=== PATIENT | female | born 1955 | race Caucasian/White ===

== ENCOUNTER 2024-08-15 21:51 | Emergency (ER) | payer OTHER, MEDICARE ==
--- OUTSIDE RECORDS SUMMARY | 2024-08-15 21:54 | XMS REPORT | Continuity of Care Document ---
Author Name Unknown Address [address] [facility] [address] [place] [address] [facility] th[facility] Address [address] [facility] [address] [place] [address] Care Team Providers Care Track Welder Name Role Phone Darren PASCAL, Gabriella Primary Care Physician [phone] Rikki Wade MD Attending Clinician [phone] LANI WAGNER Attending Clinician Unavailab LANI Salas Attending Clinician Unavailab Lani Salas DO Attending Clinician [phone] Rikki Wade MD Admitting Clinician [phone] LANI WAGNER Admitting Clinician Unavailab rena Payers Payer Name Policy Type Policy Number Effective Date Expirati on Date Source Allergies, Adverse Reactions, Alerts Allergy Name Allergy Type Status Severity Reaction(s) Onset Date Inactive Date Treating Clinician Comments Source PENICILL IN DRUG INGREDI Active Hives 2023-06 00:00: 00 [facility] Penicill in Propensi ty to adverse reaction s Active Hives 2023-06 00:00: 00 [facility] CODEINE DRUG INGREDI Active ITCHING 2012-06 00:00: 00 [facility] Codeine Propensi ty to adverse reaction s Active Itching 2012-06 00:00: 00 [facility] Social History Social Habit Start Date Stop Date Quantity Comments Source [facility] Tobacco use and exposure 2024-06-29 00:00:00 2024-06-29 00:00:00 Smokeless tobacco non-user [facility] History of Social function 2024-06-29 00:00:00 2024-06-29 00:00:00 [facility] Sex assigned at 1955 00:00:00 1955 00:00:00 [facility] Smoking Status Start Date Stop Date Source Tobacco smoking consumption unknown [facility] Never smoked tobacco [facility] Medications Ordered Medication Name Filled Medication Name Start Date Stop Date Current Medication? Ordering Clinician Indication Dosage Frequency Signature (SIG) Comments Components Source neomycin-po lymyxin-dex amethasone (MAXITROL) 3.5 mg/g-10,000 unit/g-0.1 % ophthalmic ointment 07-14 16:38: 00 07-14 16:43 :05 No PRN, Starting on Fri07/14/24 at 1038, Until Fri07/14/24 at 1043, Routine, Intra-op [facility] sodium chloride (NS) injection 07-14 16:37: 00 07-14 16:43 :05 No PRN, Starting on Fri07/14/24 at 1037, Until Fri07/14/24 at 1043, Routine, Intra-op [facility] dexamethaso ne (DECADRON PHOSPHATE) 4 mg/mL injection 07-14 16:37: 00 07-14 16:43 :05 No PRN, Starting on Fri07/14/24 at 1037, Until Fri07/14/24 at 1043, Routine, Intra-op [facility] ceFAZolin (ANCEF) injection 07-14 16:37: 00 07-14 16:43 :05 No PRN, Starting on Fri07/14/24 at 1037, Until Fri07/14/24 at 1043, JAYME, Intra-op [facility] carbachoL (MIOSTAT) 0.01 % intraocular injection 07-14 16:35: 00 07-14 16:43 :05 No PRN, Starting on Fri07/14/24 at 1035, Until Fri07/14/24 at 1043, Routine, Intra-op [facility] EPINEPHrine 1:1,000 (1 mg/mL) (ADRENALIN) 0.5 mL in balanced salt soln no.1 irrig. (BSS PLUS) 500 mL OR irrigation 07-14 16:22: 00 07-14 16:43 :05 No PRN, Starting on Fri07/14/24 at 1022, Intra-op [facility] chondroitin sulf-sod hyaluronate (DUOVISC VISCO ELASTIC) intraocular injection 07-14 16:22: 00 07-14 16:43 :05 No PRN, Starting on Fri07/14/24 at 1022, Until Fri07/14/24 at 1043, Routine, Intra-op [facility] water for irrigation irrigation solution 07-14 16:19: 00 07-14 16:43 :05 No PRN, Starting on Fri07/14/24 at 1019, Until Fri07/14/24 at 1043, Routine, Intra-op [facility] Hyaluronida se, Human Recomb. (HYLENEX) injection 07-14 16:14: 00 07-14 16:43 :05 No PRN, Starting on Fri07/14/24 at 1014, Until Fri07/14/24 at 1043, Routine, Intra-op [facility] eye block syringe 11 mL 07-14 16:14: 00 07-14 16:43 :05 No PRN, Starting on Fri07/14/24 at 1014, Until Fri07/14/24 at 1043, Intra-op [facility] cyclopent 1%-tropic 1%-phenyl 2.5%-ketor 0.5% (MYDRIATIC #5) ophthalmic solution syringe 0.5 mL 07-14 15:15: 00 07-14 15:13 :00 No .5mL 0.5 mL, Right Eye, ONCE, 1 dose, On Fri07/14/24 at 0915, Routine, DSU Pre-op [facility] aspirin 81 mg EC tablet 07-14 13:28: 33 Yes 81mg Take 1 tablet by mouth in the morning. [facility] Cholecalcif ramirez, Vitamin D3, 125 mcg (5,000 unit) tablet 07-14 13:28: 33 Yes 5000U Take 1 tablet by mouth in the morning. [facility] Vitamin B-12 500 mcg tablet 07-14 13:28: 33 Yes 500ug Take 1 tablet by mouth in the morning. [facility] Glucosamine -Chondroit- Vit C-Mn 500-400 mg Cap 07-14 13:28: 33 Yes 1{capsu le} Take 1 capsule by mouth in the morning. [facility] Lactobacill us acidophilus 10 billion cell capsule 07-14 13:28: 33 Yes 1{capsu le} Take 1 capsule by mouth in the morning. [facility] HYDROcodone -acetaminop hen (NORCO 5) tablet 1 tablet 2023-06 2- 00:00: 00 06-23 23:57 :00 No 1{tbl} 1 tablet, Oral, ONCE, 1 dose, On Fri06/23/24 at 1800, JAYME [facility] simvastatin 40 mg tablet 2023-06 00:00: 00 Yes 40mg Take 1 tablet by mouth every evening. [facility] estradioL 0.5 mg tablet 02-19 00:00: 00 Yes .5mg Take 1 tablet by mouth in the morning. [facility] triamcinolo ne acetonide 0.1 % cream 07-11 00:00: 00 Yes Apply to area(s) as needed. [facility] Vital Signs Vital Name Observation Time Observation Value Comments S kojo Systolic blood pressure 2024-07-14 16:55:00 130 mm[Hg] [facility] Diastolic blood pressure 2024-07-14 16:55:00 77 mm[Hg] [facility] Heart rate 2024-07-14 16:55:00 65 /min [facility] Respiratory rate 2024-07-14 16:55:00 17 /min [facility] Oxygen saturation in Arterial blood by Pulse oximetry 2024-07-14 16:55:00 99 /min [facility] Body temperature 2024-07-14 16:43:00 36.61 [place] [facility] Body height 2024-07-14 15:10:00 160 cm [facility] Body weight 2024-07-14 15:10:00 56.7 kg [facility] BMI 2024-07-14 15:10:00 22.14 kg/m2 [facility] Systolic blood pressure 2024-07-14 15:10:00 153 mm[Hg] [facility] Diastolic blood pressure 2024-07-14 15:10:00 77 mm[Hg] [facility] Heart rate 2024-07-14 15:10:00 83 /min [facility] Body temperature 2024-07-14 15:10:00 36.39 [place] [facility] Respiratory rate 2024-07-14 15:10:00 14 /min [facility] Body height 2024-07-14 15:10:00 160 cm [facility] Body weight 2024-07-14 15:10:00 56.7 kg [facility] BMI 2024-07-14 15:10:00 22.14 kg/m2 [facility] Oxygen saturation in Arterial blood by Pulse oximetry 2024-07-14 15:10:00 97 /min [facility] Systolic blood pressure 2024-06-23 22:21:00 149 mm[Hg] [facility] Diastolic blood pressure 2024-06-23 22:21:00 74 mm[Hg] [facility] Heart rate 2024-06-23 22:21:00 77 /min [facility] Body temperature 2024-06-23 22:21:00 36.5 [place] [facility] Respiratory rate 2024-06-23 22:21:00 14 /min [facility] Body height 2024-06-23 22:21:00 160 cm [facility] Body weight 2024-06-23 22:21:00 56.7 kg [facility] BMI 2024-06-23 22:21:00 22.14 kg/m2 [facility] Oxygen saturation in Arterial blood by Pulse oximetry 2024-06-23 22:21:00 99 /min [place] [facility] Procedures Procedure Date / Time Performed Performing [facility] Source [id number] - [place] XCAPSL CTRC RMVL INSJ IO LENS PROSTH W/O ECP 2024-07-14 16:05:00 Rikki Wade [facility] XR HAND 3+ VW RIGHT 2024-06-23 22:40:15 Tammy Wagner ra [facility] Encounters Start Date/Time End Date/Time Encounter Type Admission Type Attending Clinicians Care Facility Care Department Encounter ID Source 2024-07-14 09:01:00 2024-07-14 11:07:00 Hospital Encounter Rikki Wade [facility] [id number] [facility] 2024-07-14 10:02:00 2024-07-14 10:35:00 Surgery Rikki Wade [facility] [id number] [facility] 2024-06-23 16:22:00 2024-06-23 18:05:00 Emergency X LANI WAGNER SANDRA [facility] ERT [id number] [facility] 2024-06-23 16:22:00 2024-06-23 18:05:00 Emergency Lani Wagner [facility] [id number] [facility] Results Test Description Test Time Test Comments Results Resul t Comments Source XR Hand 3+ vw right 2024-05-31 5 23:20:43 ORDERING PHYSICIAN: LANI WAGNER HISTORY: right hand pain TECHNIQUE: Right hand radiographs, 3 views. COMPARISON: None. FINDINGS:Bones and joints: Small finger proximal phalanx displaced, angulatedfracture. Interphalangeal and thumb CMC joint degenerative changes. Soft tissues: Within normal limits. [facility] History and Physical Notes Date/Time Note Provider Source 2024-07-14 09:30:00 H&P Update H&P was reviewed and the patient was examined and there was no change in the patient's condition. [facility] Health Notes Date/Time Note Provider Source 2024-06-29 17:48:39 Images from the original note were not included. Your procedure is at [facility] on 07/14/23. The address is [address] [place] [address], [id number] [facility] nursing staff will call you the workday before your procedure to let you know what time to arrive.On the day of your procedure, please go inside that door and check in at the desk. Please note: You may not travel home alone and that includes in a taxi or by bus. We must speak to your Responsible Adult (who will be picking you up) the morning of your procedure, before the start of your procedure. This person must be an adult over the age of 18 years of age. Do not eat any solid food after midnight the night before surgery. May have 8-16 oz of water/clear liquids each hour after midnight, as desired, until two hours prior to arrival to promote hydration. You may take your medications with a sip of water as directed by physician. Anticoagulants will be per physician guidance. Medication Note(s)/Instructions:Will continue ASA per MD instruction. Pending screening, we may test for COVID. If a patient tests positive, their cases are cancelled and/or rescheduled. COVID SCREENING NOTE: Denies COVID symptoms, no testing required. Advised patient will receive a call workday prior to surgery/procedure between 12-3 pm with arrival time. Additional requests, questions, concerns:CB number and availability provided. Patient verbalized understanding of pre-op instructions and voiced no further questions at this time. [facility] 2024-06-23 18:02:32 Pt given printed and verbal discharge instructions regarding closed displaced fracture proximal phalanx. Pt verbalized understanding of instructions, pt awake alert oriented, resp reg unlabored, skin w/d, color appropriate for race, moves all ext well,pt encouraged to follow up with ortho. Advised to seek medical attention for new/prolonged/worsening of symptoms. No adverse reaction to meds given in ER noted upon discharge Awake, alert oriented, resp reg unlabored, skin w/d, pt leaving amb with steady gait, in no apparent distress, [facility] Sayra Hernandez RN [facility] 2024-06-23 16:19:29 Selin Cooper is a 68 year old female c/o hit right fifth finger when tried to fall, no LOC, did not hit head, noted edema [facility] 2024-06-23 16:13:[address] [facility] Emergency Department Note Patient Name: Selin Cooper Date of : 1955 68 year old female Treatment Room: [facility] ED [facility] Primary Care Physician: No primary care provider on file. Patient Escorted by: Family [5] Mode of Arrival: Personal means [1] EMS Treatment Prior to ED Arrival: Travel and Exposure Screening: Symptoms Does patient have any of these symptoms?: (not recorded) Exposure Screening Has patient had contact with someone with a communicable disease in the last month?: (not recorded) Diseases exposed to:: (not recorded) Is Patient ?: (not recorded) Exposure Date: (not recorded) Chief Complaint: Chief Complaint Patient presents with Hand Pain right History of Present Illness: The patient presents from home for evaluation for pain to her right fifth digit that occurred just prior to arrival. She was going for a walk and was checking her mail when she tripped and caught herself with her right hand. She did not hit her head. No loss of conscious. She was ambulatory at the scene. She is not take any blood thinners. She is right-handed. No medication for pain taken prior to arrival. She denies any headache or neck pain. Here for evaluation. Past Medical History/Immunizations: History reviewed. No pertinent past medical history. Allergies: Allergies Allergen Reactions Penicillin Hives Past Social History: Substance & Sexual Activity No substance use or sexual activity history on file. Past Surgical History: History reviewed. No pertinent surgical history. Review of Systems: Review of Systems Constitutional: Negative for chills and fever. Respiratory: Negative for cough. Cardiovascular: Negative for chest pain. Gastrointestinal: Negative for abdominal pain. Genitourinary: Negative for dysuria. Musculoskeletal: Positive for arthralgias. Negative for neck pain and neck stiffness. Skin: Negative for wound. Neurological: Negative for dizziness. Psychiatric/Behavioral: Negative for agitation. Endocrine: Negative for goiter. Physical Exam: ED Triage Vitals [06/23/24 1621] Weight 56.7 kg (125 lb) Actual or estimated Estimated by patient/family report Height 1.6 m (5' 3") BP (!) 149/74 Pulse 77 Resp 14 Temp 36.5 ?C (97.7 ?F) Temp src SpO2 99 % Measured on Room air Physical Exam Vitals and nursing note reviewed. Constitutional: Appearance: Normal appearance. HENT: Head: Normocephalic and atraumatic. Neck: Comments: No vertebral body tenderness to her cervical spine. Cardiovascular: Rate and Rhythm: Normal rate. Pulses: Normal pulses. Pulmonary: Effort: Pulmonary effort is normal. No respiratory distress. Abdominal: General: There is no distension. Musculoskeletal: Cervical back: Neck supple. No tenderness. Comments: No vertebral body tenderness to the thoracic or lumbar spine. She has tenderness, swelling and a slight deformity noted to the fifth digit of her right hand. +2 radial pulse right side. Skin: General: Skin is warm. Neurological: Mental Status: She is alert. Radiology: XR Hand 3+ vw right Final Result ORDERING PHYSICIAN: LANI WAGNER HISTORY: right hand pain TECHNIQUE: Right hand radiographs, 3 views. COMPARISON: None. FINDINGS: Bones and joints: Small finger proximal phalanx displaced, angulated fracture. Interphalangeal and thumb CMC joint degenerative changes. Soft tissues: Within normal limits. IMPRESSION Right small finger proximal phalanx fracture. RL: 5500 End of Report Lab Results: Lab Results - No data to display EKG: If EKG completed, see Procedure Note. Orders and Treatments: Orders Placed This Encounter Procedures XR Hand 3+ vw right Orders Placed This Encounter Medications HYDROcodone-acetaminophen (NORCO 5) tablet 1 tablet First Provider Eval: ED Events Date/Time Event User Comments 06/23/241623 First Provider Evaluation LANI WAGNER DO -- 06/23/241623 Medical Screening Begins LANI WAGNER DO -- ED COURSE Diagnosis/Impression as of 06/23/241755 Pain of right hand Closed displaced fracture of proximal phalanx of right little finger, initial encounter Procedures: Procedures MDM: Medical Decision Making The patient presents from home for evaluation for pain to her right fifth digit that occurred just prior to arrival. She was going for a walk and was checking her mail when she tripped and caught herself with her right hand. She did not hit her head. No loss of conscious. She was ambulatory at the scene. She is not take any blood thinners. She is right-handed. No medication for pain taken prior to arrival. She denies any headache or neck pain. Vital signs are stable in the ER. She has tenderness, swelling and slight deformity noted to her right fifth finger. +2 radial pulse right side. Offered the patient pain medication and she does decline. Will obtain x-ray of her hand to eval for possible fracture. Anticipate discharge home later. 1754 - the patient is doing well here in the ER. She is a fracture of her right fifth digit. A splint was applied at bedside. She will need to follow-up with orthopedics in 1 week. She remained stable here in the ER and is okay for discharge home with PCP follow-up. Problems Addressed: Closed displaced fracture of proximal phalanx of right little finger, initial encounter: acute illness or injury Pain of right hand: acute illness or injury Amount and/or Complexity of Data Reviewed Radiology: ordered and independent interpretation performed. Decision-making details documented in ED Course. Risk OTC drugs. Prescription drug management. Flowsheet Documentation: Scoring Tools: No data recorded Disposition/Condition: ED Disposition ED Disposition Discharge Condition Stable Comment -- Discharge Medications: Patient's Medications No medications on file Follow-up: Contact information for follow-up Pcp, Patient Does Not Have A [address] [facility] [id number] Electronically signed by: Lani Wagner DO 06/23/24 1751 [facility]
[2024-08-16 01:07] LABS: Specific Gravity 1.006 (1.005-1.030); Sqamous Epithelial None Seen /HPF (None Seen); Urine Bacteria None Seen /HPF (<20); Urine Bilirubin NEGATIVE (Negative); Urine Blood Negative (Negative); Urine Clarity Turbid (Clear); Urine Color Colorless (Yellow); Urine Culture Reflex Order NOT NEEDED; Urine Glucose NEGATIVE (Negative); Urine Ketones NEGATIVE (Negative); Urine Micro Reflex YN NO BILL MICROSCOPIC; Urine Nitrite NEGATIVE (Negative); Urine Protein NEGATIVE (Negative); Urine RBC <5 /HPF (None Seen); Urine Urobilinogen Normal (Normal); Urine WBC <5 /HPF (<5)
[2024-08-16 01:20] LABS: Absolute Basophils 0.1 K/uL (0-0.5); Absolute Eosinophils 0.1 K/uL (0-0.5); Absolute Lymphocytes (CBC) 1.4 K/uL (0.7-4.9); Absolute Monocytes 0.5 K/uL (0.1-1.3); Absolute Neutrophil 5.5 K/uL (1.8-8.0); Basophils % 0.8 % (0-1.3); Eosinophils % 1.1 % (0-4.4); Hematocrit 39.4 % (36.0-45.0); Hemoglobin 13.2 g/dL (12.0-15.0); Lymphocytes % 19.1 % (15.3-44.8); MCH 28.9 pg (27.0-35.0); MCHC 33.6 g/dL (32.0-36.0); MPV 8.1 fL (7.6-11.3); Monocytes % 6.5 % (3.3-12.3); Neutrophils % 72.5 % (41.7-73.7); Nucleated Red Blood Cells % 0.1 % (0-0); Platelets 302 thou/uL (152-406); RBC Red Blood Cell Count 4.57 M/uL (3.86-4.86); Red Cell Distribution Width 13.4 % (12.1-15.2)
[2024-08-16 01:38] LABS: Albumin 3.5 g/dL (3.4-5.0); Albumin/Globulin Ratio 0.9 (1.1-1.8); Anion Gap 6.6 mEq/L (5.0-15.0); Bilirubin Total 0.4 mg/dL (0.2-1.0); Globulin 3.7 g/dL (2.3-3.5); Potassium 3.6 mEq/L (3.5-5.1); Protein, Total 7.2 g/dL (6.4-8.2)
--- NOTE | 2024-08-16 02:30 | RAD REPORT ---
CLINICAL HISTORY: Swelling. COMPARISON: None. TECHNIQUE: CT ABDOMEN PELVIS WITH IV CONTRAST on 08/15/2024 11:41 PM NOCTURNIST PHYSICIAN This exam was performed according to our departmental dose-optimization program, which includes autom ated exposure control, adjustment of the mA and/or kV according to patient size and/or use of iterative reconstruction technique. FINDINGS: Lower lungs are clear. Abdomen: There is a small left hepatic lobe cyst. There is no biliary dilatation. Gallbladder is norm al in appearance. The pancreas and spleen are normal in appearance. The adrenal glands and kidneys are unremarkable. Abdominal aorta is normal in course and caliber without aneurysm. There is no free air. There is no r etroperitoneal adenopathy. Pelvis: There is no bowel obstruction. Urinary bladder is unremarkable. There is no free fluid. Appen kiana is normal. Skeleton: There are no acute osseous findings. No suspicious bony lesions. IMPRESSION: No acute process. Electronically signed by: Gurvinder Luna MD 08/16/2024 02:27 AM NOCTURNIST PHYSICIAN RP Due to temporary technical issues with the PACS/Bundle [employer] reporting system, reports are being edwin d by the in-house radiologist without review as a courtesy to ensure prompt reporting the interpreting radiologist is fully responsible for the content of the report. Transcribed Date/Time: 08/16/2024 2:30 AM
--- NOTE | 2024-08-16 02:40 | EDPHYS ---
Physician Documentation [facility] Name: Selin Ruiz Age: 69 yrs Sex: Female : 1955 Arrival Date: 08/15/2024 Time: 21:51 Bed 8 Private MD: ED Physician Howie Ewing HPI: 08/15 23:30 This 69 yrs old Female presents to ER via Ambulatory with complaints of Vaginal Pain, cp lump in vaginal area. 23:30 The patient presents with protruding mass in vaginal canal. cp 23:30 Onset: The symptoms/episode began/occurred today. Associated signs and symptoms: cp Pertinent negatives: constipation, fever, vaginal bleeding, abdominal pain. Historical: - Allergies: 22:10 PENICILLINS; me1 - PMHx: 22:10 Hypercholesterolemia; me1 - PSHx: 22:10 Total abdominal hysterectomy; me1 - Immunization history:: Adult Immunizations up to date. - Infectious Disease History:: Denies. - Social history:: Smoking status: Patient denies any tobacco usage or history of. ROS: 23:33 Constitutional: history per hpi cp Exam: 23:40 Constitutional: The patient appears in no acute distress, alert, awake, non-toxic, well cp developed, well nourished, 23:40 Head/Face: Normocephalic, atraumatic. cp 23:40 Eyes: Periorbital structures: appear normal, Conjunctiva: normal, no exudate, no cp injection, Sclera: no appreciated abnormality, Lids and lashes: appear normal, bilaterally, 23:40 ENT: External ear(s): are unremarkable, Nose: is normal, Mouth: Posterior pharynx: cp Airway: no evidence of obstruction, patent, 23:40 Chest/axilla: Inspection: normal, 23:40 Cardiovascular: Rate: normal, 23:40 Respiratory: the patient does not display signs of respiratory distress, Respirations: normal, no use of accessory muscles, no retractions, Breath sounds: are clear throughout, no decreased breath sounds, 23:40 Abdomen/GI: Inspection: abdomen appears normal, Bowel sounds: active, all quadrants, Palpation: abdomen is soft and non-tender, in all quadrants, 23:40 Back: pain, is absent, ROM is normal, 23:40 : Pelvic Exam: External exam: is normal, Speculum exam: no bleeding is noted, no obvious prolapsed mass, the nurse was present for the exam, Vital Signs: 22:06 BP 157 / 90; Pulse 96; Resp 18; Temp 98.7; Pulse Ox 99% ; Weight 58.06 kg; Height 5 ft. me1 3 in. ; Pain 0/10; 23:10 BP 151 / 86; Pulse 91; Resp 17; Pulse Ox 100% on R/A; dd2 08/16 00:21 BP 145 / 84; Pulse 85; Resp 16; Pulse Ox 98% on R/A; dd2 02:00 BP 148 / 81; Pulse 82; Resp 16; Pulse Ox 99% on R/A; dd2 02:30 BP 142 / 84; Pulse 80; Resp 16; Temp 98.5; Pulse Ox 97% on R/A; dd2 08/15 22:06 Body Mass Index 22.67 (58.06 kg, 160.02 cm) me1 08/15 22:06 Pain Scale: Adult [facility] [place] Gay Coma Score: 08/15 22:40 Eye Response: spontaneous(4). Motor Response: obeys commands(6). Verbal Response: dd2 oriented(5). Total: 15. MDM: 22:15 Medical Screening Exam initiated cp 08/16 00:00 Differential diagnosis: ovarian cyst, urinary tract infection, vaginosis, Bartholin cp cyst, hernia, vaginal prolapse. 02:40 Data reviewed: vital signs, nurses notes, lab test result(s), radiologic studies, CT cp scan, and as a result, I will discharge patient. 02:40 Counseling: I had a detailed discussion with the patient and/or guardian regarding the cp historical points, exam findings, and any diagnostic results supporting the discharge/admit diagnosis, the need for outpatient follow up, an OB/Gyne specialist, to return to the emergency department if symptoms worsen or persist or if there are any questions or concerns that arise at home. 08/15 23:41 Order name: CBC with Diff; Complete Time: 01:47 cp 08/15 23:41 Order name: CMP; Complete Time: 01:47 cp 08/16 01:47 Interpretation: Normal except: CL 109; GLUC 109; GFR 60; AST 12; GLOB 3.7; A/G 0.9. cp 08/15 23:41 Order name: Lipase; Complete Time: 01:47 cp 08/15 23:41 Order name: Urinalysis W/Microscopic; Complete Time: 01:47 cp 08/16 01:47 Interpretation: Normal except: [facility] Turbid; UESTR 75. cp 08/15 23:41 Order name: CT Abd/Pelvis - IV Contrast Only; Complete Time: 02:32 cp 08/15 23:24 Order name: Pelvic Exam Setup; Complete Time: 00:48 cp 08/15 23:41 Order name: IV Saline Lock; Complete Time: 00:47 cp 08/15 23:41 Order name: Labs collected and sent; Complete Time: 00:47 cp Administered Medications: No medications were administered Disposition Summary: 08/16/24 02:40 Discharge Ordered Notes: Location: Home cp Problem: new cp Symptoms: are unchanged cp Condition: Stable cp Diagnosis - Encounter for examination and observation for unspecified reason cp Followup: cp - With: Mónica Denise MD - When: 5 - 6 days - Reason: Recheck today's complaints Discharge Instructions: - Discharge Summary Sheet cp - Health Maintenance for Postmenopausal Women cp Forms: - Medication Reconciliation Form cp - Antibiotic Education cp - Prescription Opioid Use cp - Patient Portal Instructions cp - Leadership Thank You Letter cp Signatures: Dispatcher [employer] EDMS Howie Rosario PA PA cp Mikayla Michele RN RN me1 Corrections: (The following items were deleted from the chart) 08/15 23:42 23:42 Urinalysis W/Microscopic+U.LAB.BRZ ordered. EDMS EDMS
--- NOTE | 2024-08-16 02:40 | ER ---
Nurse's Notes [facility] Name: Selin Ruiz Age: 69 yrs Sex: Female : 1955 Arrival Date: 08/15/2024 Time: 21:51 Bed 8 Private MD: Diagnosis: Encounter for examination and observation for unspecified reason Presentation: 08/15 22:06 Chief complaint: Patient states: she was wiping and noticed a bump near her vagina. me1 Denies pain. Denies fever. Coronavirus screen: Vaccine status: Patient reports receiving the 2nd dose of the covid vaccine. Ebola Screen: No symptoms or risks identified at this time. Initial Sepsis Screen: Does the patient meet any 2 criteria? No. Patient's initial sepsis screen is negative. Does the patient have a suspected source of infection? No. Patient's initial sepsis screen is negative. Risk Assessment: Do you want to hurt yourself or someone else? Patient reports no desire to harm self or others. Onset of symptoms was August 15, 2024 at 20:30. 22:06 Method Of Arrival: Ambulatory [facility] [place] 22:06 Acuity: ELIZA 3 me1 Triage Assessment: 22:10 General: Appears comfortable, well groomed, well developed, well nourished, Behavior is me1 calm, cooperative, appropriate for age. Pain: Denies pain. Neuro: Level of Consciousness is awake, alert, obeys commands, Oriented to person, place, time, situation, Appropriate for age. Cardiovascular: Patient's skin is warm and dry. Respiratory: Airway is patent Respiratory effort is even, unlabored, Respiratory pattern is regular, symmetrical. GI: No signs and/or symptoms were reported involving the gastrointestinal system. : Reports bump to vaginal area. Denies pain. Derm: Skin is intact, is healthy with good turgor, Skin is pink, warm \T\ dry. Musculoskeletal: No signs and/or symptoms reported regarding the musculoskeletal system. Historical: - Allergies: 22:10 PENICILLINS; me1 - PMHx: 22:10 Hypercholesterolemia; me1 - PSHx: 22:10 Total abdominal hysterectomy; me1 - Immunization history:: Adult Immunizations up to date. - Infectious Disease History:: Denies. - Social history:: Smoking status: Patient denies any tobacco usage or history of. Screenin:40 [facility] ED Fall Risk Assessment (Adult) History of falling in the last 3 months, dd2 including since admission No falls in past 3 months (0 pts) Confusion or Disorientation No (0 pts) Intoxicated or Sedated No (0 pts) Impaired Gait No (0 pts) Mobility Assist Device Used No (0 pt) Altered Elimination No (0 pt) Score/Fall Risk Level 0 - 2 = Low Risk Oriented to surroundings, Maintained a safe environment, Educated pt \T\ family on fall prevention, incl call for assistance when getting out of bed, Assessed \T\ reinforced patient's understanding of fall precautions, Hourly rounding (assess needs \T\ fall precautionary measures) done. Abuse screen: Denies threats or abuse. Nutritional screening: No deficits noted. Tuberculosis screening: No symptoms or risk factors identified. Assessment: 23:10 General: Appears in no apparent distress. Behavior is calm, cooperative, appropriate dd2 for age. Pain: Denies pain. Neuro: Gruber Agitation-Sedation Scale (RASS): 0 - Alert and Calm Level of Consciousness is awake, alert, obeys commands, Oriented to person, place, time, situation, Appropriate for age. Cardiovascular: Patient's skin is warm and dry. Respiratory: Airway is patent Respiratory effort is even, unlabored, Respiratory pattern is regular, symmetrical. GI: No deficits noted. No signs and/or symptoms were reported involving the gastrointestinal system. Abdomen is flat, non-distended. : Reports raised bump near vagina. EENT: No deficits noted. No signs and/or symptoms were reported regarding the EENT system. Derm: No deficits noted. No signs and/or symptoms reported regarding the dermatologic system. Musculoskeletal: No deficits noted. No signs and/or symptoms reported regarding the musculoskeletal system. Circulation, motion, and sensation intact. Range of motion: intact in all extremities. Vital Signs: 22:06 BP 157 / 90; Pulse 96; Resp 18; Temp 98.7; Pulse Ox 99% ; Weight 58.06 kg; Height 5 ft. me1 3 in. ; Pain 0/10; 23:10 BP 151 / 86; Pulse 91; Resp 17; Pulse Ox 100% on R/A; dd2 08/16 00:21 BP 145 / 84; Pulse 85; Resp 16; Pulse Ox 98% on R/A; dd2 02:00 BP 148 / 81; Pulse 82; Resp 16; Pulse Ox 99% on R/A; dd2 02:30 BP 142 / 84; Pulse 80; Resp 16; Temp 98.5; Pulse Ox 97% on R/A; dd2 08/15 22:06 Body Mass Index 22.67 (58.06 kg, 160.02 cm) or1 08/15 22:06 Pain Scale: Adult me1 Pennock Coma Score: 08/15 22:40 Eye Response: spontaneous(4). Motor Response: obeys commands(6). Verbal Response: dd2 oriented(5). Total: 15. ED Course: 21:56 Patient arrived in ED. gm2 21:59 Howie Rosario PA is PHCP. cp 21:59 Howie Ewing MD is Attending Physician. cp 22:10 Triage completed. me1 22:10 Arm band placed on Patient placed in waiting room. me1 22:40 Patient has correct armband on for positive identification. Placed in gown. Bed in low dd2 position. Call light in reach. Side rails up X 1. 22:40 Client placed on continuous cardiac and pulse oximetry monitoring. NIBP monitoring dd2 applied. Door closed. Noise minimized. Warm blanket given. Pillow given. Verbal reassurance given. 23:59 ALMAZ EMMANUEL, RN is Primary Nurse. dd2 08/16 00:42 Urine collected: clean catch specimen, clear. oh1 00:48 CBC with Diff Sent. dd2 00:48 CMP Sent. dd2 00:48 Lipase Sent. dd2 00:48 Assist provider with pelvic exam: Set up pelvic tray. Performed by Howie LEBLANC dd2 Patient tolerated well. Initial lab(s) drawn, by or, sent to lab. Inserted saline lock: 20 gauge in right antecubital area, using aseptic technique. Blood collected. Flushed with 10 mL NS. Patient maintains SpO2 saturation greater than 95% on room air. 02:01 CT Abd/Pelvis - IV Contrast Only In Process Unspecified. EDMS 02:37 Mónica Denise MD is Referral Physician. cp 03:03 Provided Education on: D/C EDUCATION. dd2 03:03 IV discontinued, intact, bleeding controlled, No redness/swelling at site. Pressure dd2 dressing applied. Administered Medications: No medications were administered Medication: 08/15 22:40 VIS not applicable for this client. dd2 Outcome: 08/16 02:40 Discharge ordered by . nitish 03:03 Discharged to home ambulatory, dd2 03:03 Condition: stable 03:03 Discharge instructions given to patient, Instructed on discharge instructions, follow up and referral plans. Demonstrated understanding of instructions, follow-up care, 03:03 Patient left the ED. dd2 Signatures: Dispatcher [employer] EDMS Howie Rosario PA PA cp Eddleman, Michelle, RN RN me1 Lata Tai gm2 ALMAZ EMMANUEL RN RN dd2 Mirna Potts mt1
[2024-08-16 03:13] VITALS: BP 142/84; TEMP 98.5; O2SAT 97
== END 2024-08-16 03:03 | disposition home or self-care (01) ==
LOC: ER 21:51
DX: Z71.1 Person with feared health complaint in whom no diagnosis is made (principal)
CPT/HCPCS: 85025; 81001; 36415; 83690; 80053; 74177; 99284; Q9967